=== PATIENT | male | born 1980 | race Caucasian/White ===

== ENCOUNTER 2017-02-19 11:21 | Emergency (ER) | payer BC ==
--- NOTE | 2017-02-19 12:06 | US ---
EXAMINATION TYPE: US venous doppler duplex LE LT DATE OF EXAM: 02/19/2017 11:52 AM COMPARISON: NONE CLINICAL HISTORY: Pain and Swelling Lt Lower Ext M25.562. Recent ACL repair 02/11/17, left lower leg pain SIDE PERFORMED: Left TECHNIQUE: The lower extremity deep venous system is examined utilizing real time linear array sonog rogelio with graded compression, doppler sonography and color-flow sonography. VESSELS IMAGED: External Iliac Vein (EIV) Common Femoral Vein Deep Femoral Vein Greater Saphenous Vein * Femoral Vein Popliteal Vein Small Saphenous Vein * Proximal Calf Veins (* superficial vessels) Left Leg: ++Positive for DVT left femoral vein mid extending into popliteal vein and PTV's. Compress ions deferred at these levels due to visualized thrombus. Complex anechoic area left popliteal fossa near incision site = 6.4 x 2.5 x 4.5cm IMPRESSION: 1. Findings are compatible with a positive exam for DVT of the left femoral vein extending into the p opliteal vein. 2. Popliteal fluid collection may represent a popliteal fossa cyst measuring 6.4 cm and could be ramos elated with MRI as clinically warranted.
--- NOTE | 2017-02-19 12:56 | ED ---
General Adult HPI - General Source: patient, RN notes reviewed Mode of arrival: wheelchair Limitations: no limitations <Karuna Ramos - Last Filed: 02/19/17 13:32> <Rob Canales - Last Filed: 02/21/17 07:35> - General Chief complaint: Extremity Problem,Nontraumatic Stated complaint: POS FOR BLOODCLOT Time Seen by Provider: 02/19/17 12:07 - History of Present Illness Initial comments: 36 yo male presents to the ER with cc of DVT to left lower extremity. Patient had an ACL repair done by Dr. Castro. Shaking went for follow-up visit and he was complaining of left calf pain. HE FOUND HAVE A DVT AND HE IS REFERRED HERE. PATIENT STATES HE HAS SOME MILD LEFT CALF PAIN. THERE IS NO SHORTNESS OF BREATH OR CHEST PAIN. PATIENT STATES THERE IS NO OTHER SYMPTOMS reported CLASS OF THE PAST. PATIENT DENIES ANY USE OF BLOOD THINNERS.Patient denies any recent fever, chills, shortness of breath, chest pain, back pain, abdominal pain , nausea vomiting, numbness or tingling, dysuria or hematuria, constipation or diarrhea, headaches or visual changes, or any other current symptoms. (Karuna Ramos) - Related Data Home Medications Medication Instructions Recorded Confirmed Escitalopram [Lexapro] 10 mg PO DAILY@1200 02/19/17 02/19/17 HYDROcodone/APAP 7.5-325MG [[place] 1 - 2 tab PO Q6H 02/19/17 02/19/17 7.5-325] Lisinopril [Prinivil] 20 mg PO DAILY@1200 02/19/17 02/19/17 SUMAtriptan SUCCINATE [Imitrex] 100 mg PO DAILY PRN 02/19/17 02/19/17 hydrOXYzine PAMOATE 25 mg PO Q6H 02/19/17 02/19/17 Previous Rx's Medication Instructions Recorded Rivaroxaban [Xarelto] 15 mg PO BID 21 Days 02/19/17 Allergies Allergy/AdvReac Type Severity Reaction Status Date / Time amoxicillin Allergy Rash/Hives Verified 02/19/17 12:35 Review of Systems ROS Other: All systems not noted in ROS Statement are negative. <Karuna Ramos - Last Filed: 02/19/17 13:32> ROS Other: All systems not noted in ROS Statement are negative. <Rob Canales - Last Filed: 02/21/17 07:35> ROS Statement: Those systems with pertinent positive or pertinent negative responses have been documented in the HPI. Past Medical History Past Medical History: Hypertension History of Any Multi-Drug Resistant Organisms: None Reported Past Surgical History: Orthopedic Surgery Past Psychological History: Depression Smoking Status: Never smoker Past Alcohol Use History: Occasional Past Drug Use History: None Reported <Karuna Ramos - Last Filed: 02/19/17 13:32> General Exam Limitations: no limitations <Karuna Ramos - Last Filed: 02/19/17 13:32> <Rob Canales - Last Filed: 02/21/17 07:35> - General Exam Comments Initial Comments: General: The patient is awake and alert, in no distress, and does not appear acutely ill. Neck: The neck is supple, there is no tenderness or JVD. Cardiovascular: There is a regular rate and rhythm. No murmur, rub or gallop is appreciated. Respiratory: Lungs are clear to auscultation, respirations are non-labored, breath sounds are equal. No wheezes, stridor, rales, or rhonchi. Musculoskeletal: Sensation intact with 2+ pulses throughout the left lower extremity, full Range of motion of left hip left knee and left ankle. There is some swellingof left knee and the left calf. Mild left calf tenderness. Neurological: CN II-XII intact, There are no obvious motor or sensory deficits. Coordination appears grossly intact. Speech is normal. Skin: Skin is warm and dry and no rashes or lesions are noted. Psychiatric: Normal mood and affect. (Karuna Ramos) Medical Decision Making <Karuna Ramos - Last Filed: 02/19/17 13:32> <Rob Canales - Last Filed: 02/21/17 07:35> - Medical Decision Making 36-year-old male presents with left lower extremity DVT by outpatient ultrasound. At this time we contact the patient's family care doctor Dr. Asencio regarding the patient's care. At this time he is comfortable with the starting the patient on Xarelot following up with him for additional medications and treatment. This with the patient is acute this plan as well. We will discharge the patient home. We did discuss follow-up and all questions. They state Danny they are given plan. They will be discharged home. They are in agreement with this plan. (Karuna Ramos) 36-year-old male presenting with acute left lower extremity DVT, patient is postoperative left knee surgery. He does have calf tenderness on examination, with swelling. Distal pulses are intact. Case is discussed with Dr. Caban, he does recommend that the patient follow-up with his primary care physician regarding his Xarelto medication. Case is discussed with the patient's primary care physician who agrees to this plan. Patient will be discharged home with a Xarelto starter pack. (Rob Canales) Disposition Time of Disposition: 13:32 <Karuna Ramos - Last Filed: 02/19/17 13:32> <Rob Canales - Last Filed: 02/21/17 07:35> Clinical Impression: Left leg DVT Disposition: HOME SELF-CARE Condition: Stable Instructions: Deep Venous Thrombosis (ED) Additional Instructions: Please use medication as discussed. Please follow up with family doctor if symptoms have not improved over the next two days. Please return to the emergency room if your symptoms increase or worsen or for any other concerns. Prescriptions: Rivaroxaban [Xarelto] 15 mg PO BID 21 Days Referrals: January Huerta MD [STAFF PHYSICIAN] - 1-2 days
[2017-02-19 13:34] VITALS: BP 147/70; PULSE 88; RESP 17; TEMP 98.4
== END 2017-02-19 13:32 | disposition home or self-care (01) ==
LOC: EC 11:21 → RADUSWWP 11:21 → EDSTATUS 12:20 → EC 13:32
DX: I82.412 Acute embolism and thrombosis of left femoral vein (principal); I82.432 Acute embolism and thrombosis of left popliteal vein; I10 Essential (primary) hypertension; F32.9 Major depressive disorder, single episode, unspecified; Z98.890 Other specified postprocedural states; Z88.0 Allergy status to penicillin; Z79.891 Long term (current) use of opiate analgesic; Z79.899 Other long term (current) drug therapy
CPT/HCPCS: 99283

== ENCOUNTER → 2023-05-01 | Outpatient (CLI) | payer BC ==
[2023-05-01 16:23] LABS: C Reactive Protein <0.30 mg/dL (0.00-0.80); Creatine Kinase 158 U/L (35-257); Rheumatoid Factor, Qnt <15 IU/mL (0-15); Uric Acid 5.1 mg/dL (3.7-8.7)
[2023-05-01 16:24] LABS: ALT 50 U/L (10-49); AST 26 U/L (14-35); Blood Urea Nitrogen 23.6 mg/dL (9.0-27.0); Calcium 9.7 mg/dL (8.7-10.3); Carbon Dioxide 23.3 mmol/L (21.6-31.8); Chloride 107 mmol/L (96-109); Glucose 88 mg/dL (70-110); Sodium 141 mmol/L (135-145); T4, Free (Free Thyroxine) 1.02 ng/dL (0.80-1.80)
[2023-05-01 16:41] LABS: Basophils # (A) 0.04 X 10*3/uL (0.00-0.10); Basophils % (A) 0.4 %; Eosinophils # (A) 0.03 X 10*3/uL (0.04-0.35); Eosinophils % (A) 0.3 %; HCT 47.6 % (39.6-50.0); HGB 16.1 d/dL (13.0-17.0); Lymphocytes # (A) 2.27 X 10*3/uL (0.90-5.00); Lymphocytes % (A) 21.6 %; MCH 31.1 pg (27.0-32.0); MCHC 33.8 d/dL (32.0-37.0); MCV 91.9 FL (80.0-97.0); Mean Platelet Volume 10.1 FL (9.5-12.2); Monocytes % (A) 9.5 %; NRBC Per 100 WBC 0 X 10*3/uL (0.00-0.01); Neutrophils # (A) 7.11 X 10*3/uL (1.80-7.70); Neutrophils % (A) 67.6 %; Platelet Count 333 X 10*3/uL (140-440); RBC 5.18 X 10*6/uL (4.40-5.60); RDW 12.6 % (11.5-14.5); WBC 10.51 X 10*3/uL (4.50-10.00)
[2023-05-01 17:09] LABS: Erythrocyte Sedimentation Rate 6 mm/Hr (0-15)
[2023-05-01 22:43] LABS: Cyclic Citrull Pep IgG Unit <1.5 U/mL (<=3.9); Cyclic Citrullinated Pep IgG Negative
[2023-05-02 12:32] LABS: HLA B27 NEGATIVE
[2023-05-04 09:30] LABS: Angiotensin-1 Converting Enz. 29 U/L (8-52)
== END | disposition home or self-care (01) ==
LOC: LABWHC1 09:19
PROVIDERS: ATTEND Orthopaedic Surgery
DX: M75.51 Bursitis of right shoulder (principal); M25.511 Pain in right shoulder; M75.41 Impingement syndrome of right shoulder
CPT/HCPCS: 36415; 80048; 82164; 82306; 82550; 83520; 84439; 84443; 84450; 84460; 84550; 85025; 85652; 86038; 86140; 86200; 86431; 86812